=== PATIENT | female | born 1985 | race American Indian/Alaskan Native ===

== ENCOUNTER 2017-12-19 20:04 | Emergency (ER) | payer SELFPAY ==
[2017-12-19] MEDS ORDERED: NACL 0.9% 1000 ML 1,000 ML IV ONE (20:40)
[2017-12-19 21:08] LABS: Basophils # (Auto) 0.1 K/mm3 (0.0-0.1); Basophils % (Auto) 1.1 % (0.0-1.8); Eosinophils % (Auto) 0.5 % (0.0-4.3); Hematocrit 34.9 % (30.3-42.9); Hemoglobin 11.2 gm/dl (10.1-14.3); Lymphocytes % (Auto) 26.8 % (13.4-35.0); Mean Corpuscular HGB Conc 32 % (30-34); Mean Corpuscular Hemoglobin 27 pg (28-32); Mean Corpuscular Volume 83 fl (79-97); Monocytes # (Auto) 0.6 K/mm3 (0.0-0.8); Monocytes % (Auto) 8.3 % (0.0-7.3); Platelet Count 315 K/mm3 (140-440); Red Blood Count 4.23 M/mm3 (3.65-5.03); Red Cell Distribution Width 15.8 % (13.2-15.2)
[2017-12-19 21:31] LABS: Alanine Aminotransferase 14 units/L (7-56); Albumin 3.6 g/dL (3.9-5); BUN/Creatinine Ratio 14; Blood Urea Nitrogen 10 mg/dL (7-17); Hemolysis Index 0; Lipase 24 units/L (13-60)
[2017-12-19 21:35] LABS: Bilirubin,Urine NEG (Negative); Blood,Urine NEG (Negative); Color,Urine Yellow (Yellow); HCG Qualitative,Urine Positive (Negative); Mucus,Urine FEW /HPF; Protein,Urine <15 mg/dL mg/dL (Negative); Urobilinogen,Urine < 2.0 mg/dL (<2.0)
--- NOTE | 2017-12-19 23:50 | Emergency Department Report ---
ED Abdominal Pain HPI - General Chief Complaint: Urogenital-Female Stated Complaint: ABD PAIN,NUMBNESS IN FEET,NAUSEA Time Seen by Provider: 12/19/17 23:37 Source: patient Mode of arrival: Ambulatory Limitations: No Limitations - History of Present Illness Initial Comments: 32-year-old female, , with lower abdominal pain 2 weeks. Patient reports nausea and vomiting also. Patient denies fever or dysuria, vaginal bleeding. Reports thick white vaginal discharge without itching. Patient reports last menstrual period was last month. States has not had a period this month. Patient also reports tingling in bilateral feet 2 months. MD Complaint: abdominal pain (suprapubic) -: Gradual, week(s) (2) Location: suprapubic Radiation: none Migration to: no migration Severity: moderate Quality: cramping Consistency: intermittent Improves With: nothing Worsens With: nothing Associated Symptoms: nausea, vomiting, constipation. denies: dysuria, hematuria - Related Data LMP (females 10-50): 1 month Previous Rx's Medication Instructions Recorded Last Taken Type HYDROcodone/APAP 5-325 [[place] 1 each PO Q6HR PRN #14 tablet 07/03/15 Unknown Rx 5/325] Ibuprofen [Motrin] 600 mg PO Q8H PRN #20 tablet 07/03/15 Unknown Rx Pnv No.121/Iron/Folic Acid 1 each PO QDAY #30 tablet 12/20/17 Unknown Rx [ Multivitamin Tablet] Promethazine [Phenergan TAB] 25 mg PO Q6HR PRN #20 tab 12/20/17 Unknown Rx Allergies Allergy/AdvReac Type Severity Reaction Status Date / Time esomeprazole magnesium Allergy Hives Verified 07/03/15 18:27 [From Nexium] metoclopramide HCl Allergy Hives Verified 07/03/15 18:27 [From Reglan] ED Review of Systems ROS: Stated complaint: ABD PAIN,NUMBNESS IN FEET,NAUSEA Other details as noted in HPI Comment: All other systems reviewed and negative Constitutional: denies: fever Gastrointestinal: abdominal pain, nausea, vomiting, constipation Genitourinary: discharge. denies: dysuria, frequency, hematuria, abnormal menses ED Past Medical Hx - Past Medical History Hx Hypertension: Yes (diet controlled) - Surgical History Additional Surgical History: knee surgery 2009, foot surgery 2009, gall bladder surgery 2010 - Social History Smoking Status: Never Smoker Substance Use Type: None - Medications Home Medications: Home Medications Medication Instructions Recorded Confirmed Last Taken Type HYDROcodone/APAP 5-325 [[place] 1 each PO Q6HR PRN #14 tablet 07/03/15 Unknown Rx 5/325] Ibuprofen [Motrin] 600 mg PO Q8H PRN #20 tablet 07/03/15 Unknown Rx Pnv No.121/Iron/Folic Acid 1 each PO QDAY #30 tablet 12/20/17 Unknown Rx [ Multivitamin Tablet] Promethazine [Phenergan TAB] 25 mg PO Q6HR PRN #20 tab 12/20/17 Unknown Rx ED Physical Exam - General Limitations: No Limitations General appearance: alert, in no apparent distress - Head Head exam: Present: atraumatic, normocephalic - Eye Eye exam: Present: normal appearance - ENT ENT exam: Present: mucous membranes moist - Neck Neck exam: Present: normal inspection - Respiratory Respiratory exam: Present: normal lung sounds bilaterally. Absent: respiratory distress - Cardiovascular Cardiovascular Exam: Present: regular rate, normal rhythm - GI/Abdominal GI/Abdominal exam: Present: soft, tenderness (mild, suprapubic) - External exam: Present: normal external exam Speculum exam: Present: vaginal discharge (white). Absent: cervical discharge, vaginal bleeding Bi-manual exam: Present: normal bi-manual exam. Absent: cervical motion tendernes - Extremities Exam Extremities exam: Present: normal inspection - Neurological Exam Neurological exam: Present: alert, oriented X3 - Psychiatric Psychiatric exam: Present: normal affect, normal mood - Skin Skin exam: Present: warm, dry, intact, normal color ED Course Vital Signs 12/19/17 12/20/17 20:31 01:22 Temperature 99 F Pulse Rate 86 76 Respiratory 14 18 Rate Blood Pressure 150/90 Blood Pressure 140/70 [Right] O2 Sat by Pulse 98 100 Oximetry ED Medical Decision Making - Lab Data Result diagrams: 12/19/17 20:53 12/19/17 20:53 - Medical Decision Making 32-year-old female with lower abdominal pain, nausea/ vomiting 2 weeks. Patient with positive test. Ultrasound shows live IUP of 11 weeks. Urine and wet prep negative. Advised outpatient OB follow-up. - Differential Diagnosis UTI, yeast infection, vaginosis, IUP, ectopic Critical care attestation.: If time is entered above; I have spent that time in minutes in the direct care of this critically ill patient, excluding procedure time. ED Disposition Clinical Impression: 11 weeks gestation of , Paresthesias Disposition: TO HOME OR SELFCARE Is pt being admited?: No Condition: Stable Prescriptions: Pnv No.121/Iron/Folic Acid [ Multivitamin Tablet] 1 each PO QDAY #30 tablet Promethazine [Phenergan TAB] 25 mg PO Q6HR PRN #20 tab PRN Reason: Nausea Referrals: [facility] [Provider Group] - 3-5 Days Time of Disposition: 01:55
--- NOTE | 2017-12-20 01:21 | Ultrasound Report ---
FINAL REPORT PROCEDURE: US OB TRANSVAGINAL TECHNIQUE: Real-time transvaginal sonography of the uterus, placenta, amniotic fluid, adnexa, and fetus was performed with image documentation. Measurements were obtained to determine age/size. M-mode Doppler was used to document heartbeat. CPT 95356 HISTORY: abd pain COMPARISON: No prior studies are available for comparison. FINDINGS: CRL: 49mm, which corresponds to a gestational age of: 11weeks, 5 days. Yolk Sac: Normal. Embryonic Cardiac Activity: 166 beats per minute Gestational Sac: Normal. Right Ovary: Small complex cyst measures 14 millimeters Left Ovary: Normal. Estimated delivery date: 07/06/2018 Comment: Complete anatomic survey at 18-20 weeks suggested. IMPRESSION: 1. Single living intrauterine gestation at approximately 11 weeks 5 days 2. EDC by US 07/06/2018.
--- NOTE | 2017-12-20 01:21 | Ultrasound Report ---
FINAL REPORT EXAM: US OB < = 14 WEEKS FETUS HISTORY: abd pain TECHNIQUE: Transabdominal imaging was obtained the pelvis including Doppler interrogation of the uterus. FINDINGS: The uterus is anteverted measuring 11.4 cm x 7.1 cm x 8.1 cm. Within the uterus is a well-formed gestational sac which contains a yolk sac and pole. The crown-rump length is 49.4 mm corresponding to an 11 week 5 day IUP. The heart rate is 166 BPM. There is no evidence of a subchorionic hemorrhage. Free fluid is not seen. The left ovary is normal size contour and echotexture measuring 2.4 cm x 1.6 cm x 1.5 cm. The right ovary measures 2.8 cm x 1.3 cm x 1.7 cm. Within the right ovary is a 1.4 cm functional cyst. IMPRESSION: Single viable IUP, 11 weeks 5 days. The heart rate is 166 BPM. 1.4 cm complex cyst in the right ovary most likely representing corpus luteum cyst.
[2017-12-20 01:27] VITALS: BP 140/70
== END 2017-12-20 02:01 | disposition home or self-care (01) ==
LOC: ED 20:04
DX: O26.891 Other specified pregnancy related conditions, first trimester (principal); R10.30 Lower abdominal pain, unspecified; R20.2 Paresthesia of skin; O21.8 Other vomiting complicating pregnancy; O16.1 Unspecified maternal hypertension, first trimester; Z88.8 Allergy status to other drugs, medicaments and biological substances; Z3A.11 11 weeks gestation of pregnancy
CPT/HCPCS: 36415; 76801; 76817; 80053; 81001; 81025; 83690; 84702; 85025; 87210; 87591; 99284